=== PATIENT | female | born 1985 | race Asian ===

== ENCOUNTER → 2017-07-24 | Outpatient (CLI) | payer OTHER ==
--- NOTE | 2017-07-24 13:21 | RAD ---
INDICATION: Unsure date of COMPARISON: None. TECHNIQUE: Grayscale and color ultrasound images uterus and adnexa. Transabdominal and transvaginal images obtained. FINDINGS: Uterus: 9.2 x 5.3 x 4.8 cm. Intrauterine gestational sac is identified with a pole with a crown-rump length of 5 mm. heartbeat is 127. Hypoechoic region is seen adjacent to gestational sac. Suspected hypoechoic mass anterior aspect of uterus, 33 mm. Too Early to evaluate placenta. Free fluid is seen within the pelvis. Right Ovary: 4.0 x 1.9 x 1.5 cm. Flow Identified. Left Ovary: 5.1 x 2.0 x 1.8 cm. Flow Identified. 22 x 18 mm heterogenous lesion left ovary. IMPRESSION: 1. Intrauterine is identified with a pole with a positive heartbeat and estimated gestational age of 6 weeks and 2 days with estimated due date of 03/17/2018. 2. Hypoechoic region adjacent to the gestational sac. Could be secondary to subchorionic hematoma. 3. Suspected fibroid anterior aspect of the uterus. 4. Free fluid is seen within the pelvis. 5. Suspected hypoechoic lesion of the left ovary. Could be from causes such as hemorrhagic cyst although follow-up could be obtained to ensure no growth to exclude alternative causes such as endometrioma or other solid ovarian lesion.
== END ==
LOC: US 12:19
PROVIDERS: ATTEND Family Medicine
DX: Z34.91 Encounter for supervision of normal pregnancy, unspecified, first trimester (principal); Z3A.01 Less than 8 weeks gestation of pregnancy
CPT/HCPCS: 76801; 76817

== ENCOUNTER → 2017-08-24 | Outpatient (CLI) | payer OTHER ==
--- NOTE | 2017-08-24 13:39 | RAD ---
Ultrasound OB Indication: Follow-up for subchorionic hematoma Technique: Grayscale, color Doppler and spectral waveform ultrasound images of the pelvis obtained. Comparison: None Findings: The uterus measures 10.0 x 9.2 x 6.6 cm (longitudinal, transverse, AP) with a single intrauterine with cardiac activity at the right of 157 bpm. The crown to rump length measures 4.7 cm corresponding to gestational age of 11 weeks 4 days. Previously seen subchorionic hematoma is not seen on current study. The right ovary measures 2.6 x 1.5 x 1.8 cm with evidence of blood flow. The left ovary measures 3.1 x 1.4 x 2.0 cm with evidence of blood flow. Cervix is 4.2 cm in length and is within normal limits. Placenta is posterior. Impression: 1. Single viable intrauterine with gestation age of 11 weeks 4 days with due date of 03/18/2018. 2. Previously seen subchorionic hematoma is not seen on current study
== END | disposition home or self-care (01) ==
LOC: US 13:42
PROVIDERS: ATTEND Family Medicine
DX: O41.8X10 Other specified disorders of amniotic fluid and membranes, first trimester, not applicable or unspecified (principal); Z3A.11 11 weeks gestation of pregnancy
CPT/HCPCS: 76801

== ENCOUNTER 2017-09-02 15:48 | Emergency (ER) | payer OTHER ==
[~2017-09-02] VITALS: Ht 162.6 cm; Wt 51.7 kg
[2017-09-02 16:00] VITALS: BP 130/59
--- NOTE | 2017-09-02 16:05 | PHYS DOC ---
Adult General Chief Complaint Chief Complaint: VAGINAL BLEEDING HPI HPI Patient is a 32 year old female that is approximately 12 weeks presenting to the emergency department for evaluation of vaginal bleeding that started earlier this morning and she is soaking possibly one pad every several hours. Is that she is having crampy midline abdominal pain however she has not seen any proximal of conception pass. Type is A+. Patient denies any fevers chills dizziness and she is in no obvious distress with normal vital signs. Review of Systems Review of Systems Constitutional: Denies fever or chills [] Respiratory: Denies cough or shortness of breath [] Cardiovascular: No additional information not addressed in HPI [] GI: + abdominal pain. No nausea, vomiting, bloody stools or diarrhea [] : Denies dysuria or hematuria [] Musculoskeletal: Denies back pain or joint pain [] All other systems were reviewed and found to be within normal limits, except as documented in this note. Allergies Allergies Allergies Coded Allergies Type Severity Reaction Last Updated Verified No Known Drug Allergies 09/02/17 No Physical Exam Physical Exam Constitutional: Well developed, well nourished, no acute distress, non-toxic appearance. [] Cardiovascular:Heart rate regular rhythm, no murmur [] Lungs & Thorax: Bilateral breath sounds clear to auscultation [] Abdomen: Bowel sounds normal, soft, no tenderness, no masses, no pulsatile masses. [employer]SPORTATION CONSULTANT exam and revealed trace blood in her posterior vaginal vault with a closed cervical os with no active bleeding noted. Skin: Warm, dry, no erythema, no rash. [] Back: No tenderness, no CVA tenderness. [] Extremities: No tenderness, no cyanosis, no clubbing, ROM intact, no edema. [] Neurologic: Alert and oriented X 3, normal motor function, normal sensory function, no focal deficits noted. [] Current Patient Data Vital Signs Vital Signs Date Time Temp Pulse Resp B/P (MAP) Pulse Ox O2 Delivery O2 Flow Rate FiO2 09/02/17 16:00 98.1 78 17 130/59 (82) 100 Room Air 98.1 Lab Values Laboratory Tests Test 09/02/17 16:25 White Blood Count 7.2 x10^3/uL (4.0-11.0) Red Blood Count 3.88 x10^6/uL (3.50-5.40) Hemoglobin 12.2 g/dL (12.0-15.5) Hematocrit 36.3 % (36.0-47.0) Mean Corpuscular Volume 94 fL (79-100) Mean Corpuscular Hemoglobin 32 pg (25-35) Mean Corpuscular Hemoglobin Concent 34 g/dL (31-37) Red Cell Distribution Width 12.5 % (11.5-14.5) Platelet Count 220 x10^3/uL (140-400) Neutrophils (%) (Auto) 70 % (31-73) Lymphocytes (%) (Auto) 17 % (24-48) L Monocytes (%) (Auto) 9 % (0-9) Eosinophils (%) (Auto) 4 % (0-3) H Basophils (%) (Auto) 1 % (0-3) Neutrophils # (Auto) 5.0 x10^3uL (1.8-7.7) Lymphocytes # (Auto) 1.2 x10^3/uL (1.0-4.8) Monocytes # (Auto) 0.6 x10^3/uL (0.0-1.1) Eosinophils # (Auto) 0.3 x10^3/uL (0.0-0.7) Basophils # (Auto) 0.0 x10^3/uL (0.0-0.2) Laboratory Tests 09/02/17 16:25 EKG EKG [] Radiology/Procedures Radiology/Procedures Examination: Obstetric ultrasound less than 14 weeks History: History of vaginal bleeding Comparison: None available Findings: Single living intrauterine identified with heart rate of 160 bpm. [place]-rump length measures 5.92 cm corresponding to 12 weeks and 3 days +/- 8 days. Ultrasound age is 12 weeks and 3 days with estimated date of delivery by ultrasound 03/14/2018. The placenta is in the fundus and in the posterior wall. Amniotic fluid is normal. The right ovary measures 2.8 x 1.2 x 1.2 cm. The left ovary could not be identified. Impression Single living intrauterine with heart rate of 160 bpm. Ultrasound age 12 weeks and 3 days. DICTATED and SIGNED BY: LENNOX KOVACS MD DATE: 09/02/17 4779 Course & Med Decision Making Course & Med Decision Making Patient will get workup for threatened miscarriage. Patient's ultrasound and physical exam are rather unremarkable at this time. She looks well with normal vital signs with spoke to Dr. Staton over the phone and she agreed with discharge with supportive treatment and she would see the patient tomorrow at 1110. Return with worsening bleeding pain or other general concerns. Patient Aware and agreeable with plan for discharge and verbalized understanding of the above instructions. Dragon Disclaimer Dragon Disclaimer This electronic medical record was generated, in whole or in part, using a voice recognition dictation system. Departure Departure Impression: Primary Impression: Threatened Disposition: 01 HOME, SELF-CARE Condition: STABLE Referrals: RAHEL STATON MD (PCP) Patient Instructions: Threatened Miscarriage Additional Instructions: FOLLOW WITH DR. STATON TOMORROW AT 11:10. AYAAN MOSS DO Sep 02, 2017 16:05
[2017-09-02 16:32] LABS: BASO % 1 % (0-3); EOS % 4 % (0-3); HEMATOCRIT 36.3 % (36.0-47.0); HEMOGLOBIN 12.2 g/dL (12.0-15.5); LYMPH # 1.2 x10^3/uL (1.0-4.8); LYMPH % 17 % (24-48); MEAN CORPUSCULAR HEMOGLOBIN 32 pg (25-35); MEAN CORPUSCULAR HGB CONC 34 g/dL (31-37); MEAN CORPUSCULAR VOLUME 94 fL (79-100); MONO % 9 % (0-9); NEUT % 70 % (31-73); PLATELET COUNT 220 x10^3/uL (140-400); RED BLOOD COUNT 3.88 x10^6/uL (3.50-5.40); RED CELL DISTRIBUTION WIDTH 12.5 % (11.5-14.5); WHITE BLOOD COUNT 7.2 x10^3/uL (4.0-11.0)
--- NOTE | 2017-09-02 16:53 | RAD ---
Examination: Obstetric ultrasound less than 14 weeks History: History of vaginal bleeding Comparison: None available Findings: Single living intrauterine identified with heart rate of 160 bpm. [place]-rump length measures 5.92 cm corresponding to 12 weeks and 3 days +/- 8 days. Ultrasound age is 12 weeks and 3 days with estimated date of delivery by ultrasound 03/14/2018. The placenta is in the fundus and in the posterior wall. Amniotic fluid is normal. The right ovary measures 2.8 x 1.2 x 1.2 cm. The left ovary could not be identified. Impression Single living intrauterine with heart rate of 160 bpm. Ultrasound age 12 weeks and 3 days.
[2017-09-02 17:00] LABS: BILIRUBIN,URINE NEGATIVE (NEG); GLUCOSE,URINE NEGATIVE (NEG); NITRITE,URINE NEGATIVE (NEG); PH,URINE 6.5; PROTEIN,URINE NEGATIVE (NEG-TRACE); UROBILINOGEN,URINE 0.2 mg/dL (0.2 mg/dL)
[2017-09-02 17:07] LABS: BACTERIA,URINE FEW /HPF (0-FEW); RBC,URINE 0 /HPF (0-2); SQUAMOUS EPITHELIAL CELL,UR FEW /LPF; WBC,URINE 0 /HPF (0-4)
== END 2017-09-02 17:13 | disposition home or self-care (01) ==
LOC: ER 15:48
DX: O20.0 Threatened abortion (principal); Z3A.12 12 weeks gestation of pregnancy
CPT/HCPCS: 36415; 76801; 76817; 81001; 84702; 85025; 99285-25

== ENCOUNTER → 2017-11-04 | Outpatient (CLI) | payer OTHER | END | disposition home or self-care (01) | LOC: US 09:47 | DX: Z34.92 Encounter for supervision of normal pregnancy, unspecified, second trimester (principal); Z3A.21 21 weeks gestation of pregnancy | CPT/HCPCS: 76805 ==

== ENCOUNTER → 2018-02-08 | Outpatient (CLI) | payer OTHER | END | disposition home or self-care (01) | LOC: US 10:56 | DX: O36.5930 Maternal care for other known or suspected poor fetal growth, third trimester, not applicable or unspecified (principal); Z3A.34 34 weeks gestation of pregnancy | CPT/HCPCS: 76816 ==

== ENCOUNTER → 2018-03-04 | Outpatient (CLI) | payer OTHER | END | disposition home or self-care (01) | LOC: US 10:48 | DX: Z34.93 Encounter for supervision of normal pregnancy, unspecified, third trimester (principal); Z3A.38 38 weeks gestation of pregnancy; Z87.59 Personal history of other complications of pregnancy, childbirth and the puerperium | CPT/HCPCS: 76819 ==

== ENCOUNTER 2018-03-14 07:44 | Inpatient (IN) | payer OTHER ==
[2018-03-14] MEDS ORDERED: 0.9 % SODIUM CHLORIDE 10 ML DISP.SYRIN. IV (08:45)
[2018-03-14] MEDS ORDERED: TERBUTALINE 1 MG/ML VIAL. SQ (08:45)
[2018-03-14] MEDS ORDERED: ONDANSETRON PF 4 MG/2 ML VIAL. IV (08:45)
[2018-03-14] MEDS ORDERED: fentaNYL PF VIAL 100 MCG/2 ML VIAL IV ×2 (08:45)
[2018-03-14] MEDS ORDERED: IBUPROFEN 800 MG TABLET. PO (08:45)
[2018-03-14 09:19] LABS: ADD MAN DIFF? NO
[2018-03-14 09:23] LABS: BASO % 0 % (0-3); EOS # 0.1 x10^3/uL (0.0-0.7); EOS % 1 % (0-3); HEMATOCRIT 34.5 % (36.0-47.0); HEMOGLOBIN 11.7 g/dL (12.0-15.5); LYMPH # 1.1 x10^3/uL (1.0-4.8); LYMPH % 13 % (24-48); MEAN CORPUSCULAR HEMOGLOBIN 30 pg (25-35); MEAN CORPUSCULAR HGB CONC 34 g/dL (31-37); MEAN CORPUSCULAR VOLUME 90 fL (79-100); MONO # 0.7 x10^3/uL (0.0-1.1); MONO % 9 % (0-9); NEUT # 6.5 x10^3uL (1.8-7.7); NEUT % 76 % (31-73); PLATELET COUNT 225 x10^3/uL (140-400); RED BLOOD COUNT 3.86 x10^6/uL (3.50-5.40); RED CELL DISTRIBUTION WIDTH 12.7 % (11.5-14.5); WHITE BLOOD COUNT 8.5 x10^3/uL (4.0-11.0)
[2018-03-14] MEDS: IV RINGERS,LACTATED 1000ML 1,000 ML IV ×2 (09:29→16:39)
[2018-03-14] MEDS: LIDOCAINE 1% PF 30 ML VIAL. INJ (10:58)
[2018-03-14] MEDS: OXYTOCIN 30 UNIT/500 ML PREMIX 500 ML IV (10:58)
[2018-03-14] MEDS ORDERED: HYDROcodone/APAP 7.5/325MG 1 TAB TABLET PO ×2 (11:00)
[2018-03-14] MEDS ORDERED: ACETAMINOPHEN 325 MG TABLET. PO (11:15)
[2018-03-14] MEDS ORDERED: BENZOCAINE 20% TOPICAL AEROSOL SPRAY 57GM CAN. TP (13:15)
[2018-03-14] MEDS: DOCUSATE SODIUM 100 MG CAPSULE. PO (15:12)
[2018-03-14] MEDS: IBUPROFEN 800 MG TABLET. PO ×2 (17:47→22:00)
[2018-03-15] MEDS: IV RINGERS,LACTATED 1000ML 1,000 ML IV (00:39)
[2018-03-15] MEDS: LEVOTHYROXINE 100 MCG TABLET PO (07:08)
[2018-03-15 07:30] LABS: HEMATOCRIT 32.9 % (36.0-47.0); HEMOGLOBIN 11.4 g/dL (12.0-15.5); MEAN CORPUSCULAR HEMOGLOBIN 31 pg (25-35); MEAN CORPUSCULAR HGB CONC 35 g/dL (31-37); MEAN CORPUSCULAR VOLUME 90 fL (79-100); PLATELET COUNT 198 x10^3/uL (140-400); RED BLOOD COUNT 3.65 x10^6/uL (3.50-5.40); RED CELL DISTRIBUTION WIDTH 12.8 % (11.5-14.5); WHITE BLOOD COUNT 9.8 x10^3/uL (4.0-11.0)
[2018-03-15] MEDS: IBUPROFEN 800 MG TABLET. PO (15:48)
[2018-03-15] MEDS: DIPHTH,PERTUSS(ACELL),TET TOX 0.5 ML DISP.SYRIN. VAX IM (15:48)
== END 2018-03-15 16:05 | disposition home or self-care (01) | DRG 775 ==
LOC: 3 SO LND 07:44 → 3 NORTH 15:21
PROVIDERS: Family Medicine
PROC: 10E0XZZ Delivery of Products of Conception, External Approach (ICD-10-PCS; principal; 2018-03-14)
PROC: 0KQM0ZZ Repair Perineum Muscle, Open Approach (ICD-10-PCS; 2018-03-14)
PROC: 10907ZC Drainage of Amniotic Fluid, Therapeutic from Products of Conception, Via Natural or Artificial Opening (ICD-10-PCS; 2018-03-14)
DX: O99.284 Endocrine, nutritional and metabolic diseases complicating childbirth (principal); E03.9 Hypothyroidism, unspecified; Z37.0 Single live birth; O70.1 Second degree perineal laceration during delivery; Z3A.39 39 weeks gestation of pregnancy
CPT/HCPCS: 36415; 85025; 85027; 86592; 86850; 86900; 86901; 90715; G0378; J2590; J7120